=== PATIENT | female | born 1955 | race African-American/Black ===

== ENCOUNTER 2021-07-03 10:47 | Emergency (ER) | payer SELFPAY ==
[~2021-07-03] VITALS: Ht 167.6 cm; Wt 95.0 kg
[2021-07-03 11:51] LABS: BASOPHILS % 0.6 % (0.0-2.0); EOSINOPHILS % 2.1 % (0.0-5.0); HEMATOCRIT. 34.6 % (36.0-48.0); LYMPHOCYTES % 15.7 % (20.0-50.0); MEAN CORPUSCULAR HEMOGLOBIN 31.2 pg (28.0-32.0); MEAN CORPUSCULAR VOLUME 89.9 fL (81.0-99.0); MEAN PLATELET VOLUME 7.6 fl (7.4-10.4); MONOCYTES % 7.6 % (2.0-8.0); PLATELET 445 x1000/uL (130-400); RED BLOOD CELL COUNT 3.85 mill/uL (4.2-5.4); RED CELL DISTRIBUTION WIDTH 15.9 % (11.6-14.6)
[2021-07-03] MEDS ORDERED: IOHEXOL-350 100 ML BOTTLE ONE (12:23)
[2021-07-03 12:30] LABS: PROTHROMBIN TIME 10.6 sec (9.6-11.0)
[2021-07-03 13:03] LABS: CLARITY URINE CLEAR (CLEAR); COLOR URINE YELLOW (YELLOW); KETONES URINE NEGATIVE (NEGATIVE); LEUKOCYTE ESTERASE URINE NEGATIVE (NEGATIVE); NITRITE URINE NEGATIVE (NEGATIVE); OCCULT BLOOD URINE NEGATIVE (NEGATIVE); PH URINE 5.5 (4.5-8.0); PROTEIN URINE 1+ (NEGATIVE); SPECIFIC GRAVITY URINE 1.027 (1.005-1.030); UROBILINOGEN URINE 0.2 E.U./dL (0.2-1.0)
[2021-07-03 13:20] LABS: *AMPHETAMINES SCREEN URINE NEGATIVE (NEGATIVE); *BARBITURATES SCREEN URINE NEGATIVE (NEGATIVE); CANNABINOID URINE SCREEN NEGATIVE (NEGATIVE); METHADONE URINE SCREEN NEGATIVE (NEGATIVE); OPIATES URINE SCREEN NEGATIVE (NEGATIVE); PHENCYCLIDINE URINE SCREEN NEGATIVE (NEGATIVE)
[2021-07-03 13:21] LABS: *BENZODIAZEPINES SCREEN URINE NEGATIVE (NEGATIVE); *COCAINE SCREEN URINE NEGATIVE (NEGATIVE)
[2021-07-03] MEDS ORDERED: ASPIRIN 325MG EC TABLET PO ONE (14:00)
[2021-07-03] MEDS ORDERED: ASPIRIN 325MG EC TABLET PO NR (14:15)
[2021-07-03 15:39] LABS: CHLORIDE 101 mEq/L (98-107)
[2021-07-03 15:44] LABS: ETHANOL BLOOD < 10 mg/dL
[2021-07-03 15:47] LABS: LDL CHOLESTEROL 42 mg/dL (5-100)
[2021-07-03 16:51] VITALS: BP 147/69
== END 2021-07-03 16:15 | disposition short-term general hospital (02) ==
LOC: ER 10:47 → CANBEDREQ 15:38 → ER 16:15
DX: I63.9 Cerebral infarction, unspecified (principal); R53.1 Weakness; E11.9 Type 2 diabetes mellitus without complications; I10 Essential (primary) hypertension; Z20.822 Contact with and (suspected) exposure to COVID-19
CPT/HCPCS: 36415; 70450; 70496; 70498; 71045; 80053; 80305; 80320; 81003; 82465; 82962; 83721; 84484; 85025; 85610; 87426; 93005; 99291; Q9967; G0480